=== PATIENT | female | born 1985 | race Caucasian/White ===

== ENCOUNTER 2018-12-16 19:38 | Emergency (ER) | payer OTHER ==
[~2018-12-16] VITALS: Ht 162.6 cm; Wt 59.4 kg
[2018-12-16 19:42] VITALS: Ht 162.6 cm; Wt 59.4 kg
[2018-12-16 20:29] VITALS: BP 129/91
== END 2018-12-16 20:29 | disposition home or self-care (01) ==
LOC: ED 19:38
DX: S42.022A Displaced fracture of shaft of left clavicle, initial encounter for closed fracture (principal); V43.62XA Car passenger injured in collision with other type car in traffic accident, initial encounter; Y93.89 Activity, other specified; Y92.488 Other paved roadways as the place of occurrence of the external cause; Y99.8 Other external cause status